=== PATIENT | female | born 1970 | race African-American/Black ===

== ENCOUNTER 2016-07-02 13:07 | Emergency (ER) | payer BC, OTHER ==
--- NOTE | 2016-07-02 14:35 | ER Document Report ---
ED Medical Screen (RME) - General TRAVEL OUTSIDE OF THE U.S. IN LAST 30 DAYS: No <ELLIE BEJARANO - Last Filed: 07/02/16 14:33> <CHRISTIANO WYNN - Last Filed: 07/02/16 15:51> - General Chief Complaint: Dizziness Stated Complaint: NAUSEA Notes: Patient says that she's been experiencing dizziness and nausea since earlier today. She did eat breakfast and that didn't seem to help. The dizziness is worse if she turns her head. She noticed on Tuesday that she has some swelling in her left ankle and she has pain in her left foot and ankle. She has a history of a venous on both cysts in that leg in the popliteal fossa about 3 years ago.. No longer on blood thinners. History of right TKR Hx [facility] (ELLIE BEJARANO) - Related Data Allergies/Adverse Reactions: No Known Drug Allergies Allergy (Verified 07/02/16 13:34) Past Medical History Neurological Medical History: Reports: Hx Migraine Renal/ Medical History: Denies: Hx Peritoneal Dialysis Musculoskeltal Medical History: Reports Hx Musculoskeletal Trauma Past Surgical History: Reports: Hx Section - x3, Hx Orthopedic Surgery - right knee, Hx Tubal Ligation - Immunizations Immunizations up to date: Yes Hx Diphtheria, Pertussis, Tetanus Vaccination: Yes <ELLIE BEJARANO - Last Filed: 07/02/16 14:33> Course - EKG Interpretation by [place] EKG shows normal: Sinus rhythm Rate: Normal Rhythm: NSR [place]/QRS: No: Right axis deviation, Left axis deviation, RBBB, LBBB, IVCD, LAHB/ LAFB, LPHB/LPFB, Bifasicular block Voltage: No: Increased voltage, Consistant with LVH, Decreased voltage, Throughout, Limb leads P Waves: No: RUPERT, LAE, Absent, AV Dissociation, Other Heart block present: No: 1st Degree, Mobitz 1, Mobitz 2, CHB (3rd degree block) <CHRISTIANO WYNN - Last Filed: 07/02/16 15:51> - Vital Signs Vital signs: Temp Pulse Resp BP Pulse Ox 97.9 F 76 16 139/94 H 100 07/02/16 13:35 07/02/16 13:35 07/02/16 13:35 07/02/16 13:35 07/02/16 13:35
[2016-07-02 15:22] LABS: APPEARANCE,URINE CLEAR; BILIRUBIN,URINE NEGATIVE (NEGATIVE); GLUCOSE, URINE NEGATIVE (NEGATIVE); KETONES,URINE NEGATIVE (NEGATIVE); LEUKOCYTE ESTERASE,URINE NEGATIVE (NEGATIVE); NITRITE,URINE NEGATIVE (NEGATIVE); PROTEIN,URINE NEGATIVE (NEGATIVE); URINE SPECIFIC GRAVITY 1.003; UROBILINOGEN,URINE NEGATIVE mg/dL (<2.0)
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
[2016-07-02 16:46] LABS: ABSOLUTE BASOPHILS # (AUTO) 0.1 10^3/uL (0.0-0.2); ABSOLUTE EOSINOPHILS # (AUTO) 0.1 10^3/uL (0.0-0.6); ABSOLUTE LYMPHOCYTES (AUTO) 1.8 10^3/uL (0.5-4.7); ABSOLUTE MONOCYTES (AUTO) 0.2 10^3/uL (0.1-1.4); ABSOLUTE NEUT (AUTO) 3.5 10^3/uL (1.7-8.2); BASOPHILS % (AUTO) 1.3 % (0-2); EOSINOPHILS % (AUTO) 1.1 % (0-6); HEMATOCRIT 33.7 % (36.0-47.0); HEMOGLOBIN 11.3 g/dL (12.0-15.5); HGB HCT DIFFERENCE 0.2; LYMPHOCYTES % (AUTO) 31.8 % (13-45); MEAN CORPUSCULAR HEMOGLOBIN 28.5 pg (27.0-33.4); MEAN CORPUSCULAR HGB CONC 33.4 g/dL (32.0-36.0); MEAN CORPUSCULAR VOLUME 85 fl (80-97); MONOCYTES % (AUTO) 2.8 % (3-13); RED BLOOD COUNT 3.95 10^6/uL (3.72-5.28); RED CELL DISTRIBUTION WIDTH 17.4 % (11.5-14.0); WHITE BLOOD COUNT 5.6 10^3/uL (4.0-10.5)
[2016-07-02 17:06] LABS: ALANINE AMINOTRANSFERASE 26 U/L (9-52); ALBUMIN 3.9 g/dL (3.5-5.0); ALKALINE PHOSPHATASE 31 U/L (38-126); ANION GAP 11 (5-19); ASPARTATE AMINO TRANSFERASE 27 U/L (14-36); BILIRUBIN,DIRECT 0.2 mg/dL (0.0-0.4); BILIRUBIN,TOTAL 0.6 mg/dL (0.2-1.3); BLOOD UREA NITROGEN 9 mg/dL (7-20); CALCIUM 9.5 mg/dL (8.4-10.2); CARBON DIOXIDE 27 mmol/L (22-30); CHLORIDE 105 mmol/L (98-107); CREATININE RESULT 0.77 mg/dL (0.52-1.25); GLUCOSE 113 mg/dL (75-110); POTASSIUM 4.2 mmol/L (3.6-5.0); SODIUM 142.7 mmol/L (137-145); TOTAL PROTEIN 7.2 g/dL (6.3-8.2)
[2016-07-02 17:19] LABS: CREATINE KINASE MB < 0.22 ng/mL (<4.55); TROPONIN I < 0.012 ng/mL
[2016-07-02] MEDS ORDERED: NORMAL SALINE 1000 ML 1,000 ML IV ONE (17:29)
[2016-07-02 22:12] VITALS: BP 120/78
--- NOTE | 2016-07-03 06:20 | EKG REPORT ---
SEVERITY:- NORMAL ECG - SINUS RHYTHM : Confirmed by: Kenneth Guan 03-Jul-2016 06:19:24
== END 2016-07-02 22:00 | disposition home or self-care (01) ==
LOC: ER 13:07
DX: R42 Dizziness and giddiness (principal); R11.0 Nausea; R60.9 Edema, unspecified; Z98.51 Tubal ligation status
CPT/HCPCS: 36415; 80053; 81001; 82553; 84484; 84703; 85025; 93005; 93010; 93971; 99284

== ENCOUNTER 2016-12-29 19:03 | Emergency (ER) | payer OTHER, BC ==
[2016-12-29] MEDS ORDERED: IBUPROFEN 600 MG TABLET PO ONE (20:08)
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
[2016-12-29 22:51] VITALS: BP 132/82
== END 2016-12-29 22:51 | disposition home or self-care (01) ==
LOC: ER 19:03
DX: M54.2 Cervicalgia (principal); V43.52XA Car driver injured in collision with other type car in traffic accident, initial encounter; R51 Headache
CPT/HCPCS: 99284; 72110; 72070; 70450; 72125; L0120

== ENCOUNTER → 2016-12-31 | Outpatient (CLI) | payer BC, OTHER ==
[2017-01-03 15:53] LABS: HEMATOCRIT 36.8 % (36.0-47.0); HEMOGLOBIN 12.1 g/dL (12.0-15.5); HGB HCT DIFFERENCE -0.5; MEAN CORPUSCULAR HEMOGLOBIN 27.2 pg (27.0-33.4); MEAN CORPUSCULAR HGB CONC 32.7 g/dL (32.0-36.0); MEAN CORPUSCULAR VOLUME 83 fl (80-97); RED BLOOD COUNT 4.43 10^6/uL (3.72-5.28); RED CELL DISTRIBUTION WIDTH 16.4 % (11.5-14.0); WHITE BLOOD COUNT 11.2 10^3/uL (4.0-10.5)
[2017-01-03 16:14] LABS: ALANINE AMINOTRANSFERASE 27 U/L (9-52); ALBUMIN 4.6 g/dL (3.5-5.0); ALKALINE PHOSPHATASE 34 U/L (38-126); ANION GAP 18 (5-19); ASPARTATE AMINO TRANSFERASE 17 U/L (14-36); BILIRUBIN,DIRECT 0.4 mg/dL (0.0-0.4); BILIRUBIN,TOTAL 0.5 mg/dL (0.2-1.3); BLOOD UREA NITROGEN 15 mg/dL (7-20); CALCIUM 9.8 mg/dL (8.4-10.2); CARBON DIOXIDE 19 mmol/L (22-30); CHLORIDE 106 mmol/L (98-107); CREATININE RESULT 1.08 mg/dL (0.52-1.25); GLUCOSE 106 mg/dL (75-110); MAGNESIUM 1.9 mg/dL (1.6-2.3); POTASSIUM 3.9 mmol/L (3.6-5.0); TOTAL PROTEIN 8.5 g/dL (6.3-8.2)
[2017-01-03 18:06] LABS: THYROID STIMULATING HORMONE 2.06 uIU/mL (0.47-4.68)
[2017-01-05 15:39] LABS: FOL RBC HEMATOCRIT 37.1 % (34.0-46.6); FOLATE HEMOLYSATE 293.7 ng/mL (Not Estab.); FOLATE RBC 3 792 ng/mL (>498)
[2017-01-05 16:07] LABS: FOLATE SERUM 9.3 ng/mL (>3.0); VITAMIN D 25-HYDROXY 21.1 ng/mL (30.0-100.0)
== END ==
LOC: OD 17:24
PROVIDERS: ATTEND Physician Assistant
DX: Z79.899 Other long term (current) drug therapy (principal)
CPT/HCPCS: 36415; 80053; 82180; 82306; 82607; 82728; 82746; 82747; 83540; 83550; 83735; 83880; 84100; 84439; 84443; 85014; 85027

== ENCOUNTER → 2017-06-17 | Outpatient (CLI) | payer BC, OTHER ==
[2017-06-17 18:17] LABS: IRON(TIBC) 38.5 ug/dL (37-170)
== END ==
LOC: OD 16:15
PROVIDERS: ATTEND Physician Assistant
DX: Z79.899 Other long term (current) drug therapy (principal)
CPT/HCPCS: 36415; 82306; 82728; 83540; 83550

== ENCOUNTER 2017-06-24 18:44 | Emergency (ER) | payer BC, OTHER ==
--- NOTE | 2017-06-24 19:19 | ER Document Report ---
HPI - HPI Pain Level: 3 Notes: Patient is a 47-year-old female who presents the ED complaining of left knee pain that began prior to arrival. Patient states that she was walking down her stairs when she felt and heard a pop in her left knee. Patient states that this pain feels like it did in her other knee when she tore her ACL. Patient states that she has not noticed any obvious swelling, but does have pain with ambulation. Patient states that she is still able to limp around otherwise without difficulties. Patient states that the pain is primarily medial and does not radiate. Patient has a previous surgical history to her right knee ACL repair, meniscal repair and replacement. Denies any drug allergies. No other concerns or complaints at this time. Denies any smoking or IV drug use. Denies any headache, fever, URI, sore throat, chest pain, palpitations, syncope , cough, shortness of breath, wheeze, dyspnea, abdominal pain, nausea/vomiting/ diarrhea, urinary retention, dysuria, hematuria, loss of control of bowel or bladder, numbness/tingling, saddle anesthesia, muscle paralysis/weakness, or rash. - ROS Systems Reviewed and Negative: Yes All other systems reviewed and negative - REPRODUCTIVE Reproductive: DENIES: : Past Medical History - Social History Smoking Status: Never Smoker Family History: Reviewed & Not Pertinent, Malignancy Neurological Medical History: Reports: Hx Migraine Renal/ Medical History: Denies: Hx Peritoneal Dialysis Musculoskeltal Medical History: Reports Hx Musculoskeletal Trauma Past Surgical History: Reports: Hx Section - x3, Hx Orthopedic Surgery - right knee, Hx Tubal Ligation - Immunizations Immunizations up to date: Yes Hx Diphtheria, Pertussis, Tetanus Vaccination: Yes Vertical Provider Document - CONSTITUTIONAL Agree With Documented VS: Yes Notes: PHYSICAL EXAMINATION: GENERAL: Well-appearing, well-nourished and in no acute distress. LUNGS: Breath sounds clear to auscultation bilaterally and equal. No wheezes rales or rhonchi. HEART: Regular rate and rhythm without murmurs, rubs, gallops. Musculoskeletal: Left knee: FROM to passive/active. Strength 5+/5. + tenderness medial joint line. No obvious swelling, deformity, erythema, or warmth. Difficult to assess ligaments/cartilage with patient resistance, but grossly intact. Extremities: No cyanosis, clubbing, or edema b/l. Peripheral pulses 2+. Capillary refill less than 3 seconds. NEUROLOGICAL: Normal speech, limping gait. Normal sensory, motor exams PSYCH: Normal mood, normal affect. SKIN: Warm, Dry, normal turgor, no rashes or lesions noted. - INFECTION CONTROL TRAVEL OUTSIDE OF THE [place] IN LAST 30 DAYS: No Course - Re-evaluation Re-evalutation: 06/24/17 20:36 Patient is an afebrile, well-hydrated, 47-year-old female who presents to the ED with left knee pain, suspect possible internal involvement. Vitals are acceptable. PE is otherwise unremarkable for any neurovascular compromise, obvious tendon/ligament rupture, obvious fracture/dislocation, septic joint. Knee immobilizer was given and crutches provided. Recommend conservative measures for symptoms. Schedule an appoint with orthopedics for further evaluation and management. Recheck with your PCM next week as well. Return to the ED with any worsening/concerning symptoms otherwise as reviewed discharge. Ice was provided. Patient declined any p.o. medications. Patient is in agreement with disposition and plan. - Vital Signs Vital signs: Temp Pulse Resp BP Pulse Ox 98.1 F 92 18 144/74 H 98 06/24/17 18:55 06/24/17 18:55 06/24/17 18:55 06/24/17 18:55 06/24/17 18:55 Discharge - Discharge Clinical Impression: Left knee pain Qualifiers: Chronicity: acute Qualified Code(s): M25.562 - Pain in left knee Condition: Stable Disposition: HOME, SELF-CARE Instructions: Use of Crutches ([facility]), Suspected Internal Knee Injury ([facility]), Knee Immobilizing Splint ([facility]) Additional Instructions: Rest, Ice, Compression, Elevation Use crutches/splint as directed Tylenol/ibuprofen as needed Light stretches daily Strength exercises as able Moist heat and massage may help F/u with your PCP in 3-5 days for a recheck Consider consult(s) with Orthopedics/physical therapy for ongoing/worsening symptoms Return to the ED with any worsening symptoms and/or development of fever, headache, chest pain, palpitations, syncope, shortness of breath, trouble breathing, abdominal pain, n/v/d, muscle weakness/paralysis, numbness/tingling, swelling, redness, or other worsening symptoms that are concerning to you. Forms: Elevated Blood Pressure Referrals: ELIAS TIRADO MD [ASSOCIATE] - Follow up in 3-5 days
--- NOTE | 2017-06-24 20:31 | RADIOLOGY REPORT (SQ) ---
EXAM DESCRIPTION: KNEE LEFT 4 VIEW COMPLETED DATE/TIME: 06/24/2017 8:24 pm REASON FOR STUDY: left knee pain COMPARISON: None. NUMBER OF VIEWS: Four views. TECHNIQUE: AP, lateral, and both oblique radiographic images acquired of the left knee. LIMITATIONS: None. FINDINGS: MINERALIZATION: Normal. BONES: No acute fracture or dislocation. No worrisome bone lesions. JOINT: No effusion. SOFT TISSUES: No soft tissue swelling. No radio-opaque foreign body. OTHER: No other significant finding. IMPRESSION: NEGATIVE STUDY OF THE LEFT KNEE. NO RADIOGRAPHIC EVIDENCE OF ACUTE INJURY. TECHNICAL DOCUMENTATION: JOB ID: [id number] [employer]- All Rights Reserved Reading location - IP/workstation name: [email or web address]
[2017-06-24 21:59] VITALS: BP 136/80
== END 2017-06-24 21:58 | disposition home or self-care (01) ==
LOC: ER 18:44
DX: M25.562 Pain in left knee (principal)
CPT/HCPCS: 99283; 73562; L1830

== ENCOUNTER → 2018-07-05 | Outpatient (CLI) | payer BC, OTHER ==
[2018-07-05 18:16] LABS: IRON(TIBC) 22.4 ug/dL (37-170)
== END ==
LOC: OD 17:06
PROVIDERS: ATTEND Physician Assistant
DX: Z79.899 Other long term (current) drug therapy (principal)
CPT/HCPCS: 36415; 82306; 82728; 83540; 83550

== ENCOUNTER → 2018-12-27 | Outpatient (CLI) | payer BC, OTHER ==
[2018-12-27 15:35] LABS: IRON(TIBC) 52.9 ug/dL (37-170)
[2018-12-27 15:50] LABS: FREE T4 (FREE THYROXINE) 1.02 ng/dL (0.78-2.19)
[2018-12-27 16:04] LABS: THYROID STIMULATING HORMONE 2.6 uIU/mL (0.47-4.68)
== END ==
LOC: OD 14:20
PROVIDERS: ATTEND Physician Assistant
DX: Z79.899 Other long term (current) drug therapy (principal)
CPT/HCPCS: 36415; 82306; 82728; 83540; 83550; 84439; 84443